=== PATIENT | male | born 1980 | race Caucasian/White ===

== ENCOUNTER 2017-04-23 22:53 | Emergency (ER) | payer SELFPAY ==
[~2017-04-23] VITALS: Ht 190.5 cm; Wt 129.3 kg
[2017-04-23 23:26] VITALS: BP 165/110
== END 2017-04-24 06:30 | disposition left against medical advice (07) ==
LOC: ER 22:53
DX: M79.602 Pain in left arm (principal); Z53.21 Procedure and treatment not carried out due to patient leaving prior to being seen by health care provider
CPT/HCPCS: 73200

== ENCOUNTER 2021-12-07 13:48 | Inpatient (IN) | payer MEDICAID, OTHER ==
[~2021-12-07] VITALS: Ht 188 cm; Wt 134.6 kg
[2021-12-07] MEDS ORDERED: cloNIDine HCL 0.1 MG TAB PO ONE (14:15)
[2021-12-07 14:45] LABS: Basophils # (auto) 0.1 10 ^3/uL (0-0.2); Basophils % (auto) 0.4 % (0.0-2.0); Eosinophils # (auto) 0.1 10 ^3/uL (0-0.8); Eosinophils % (auto) 0.8 % (0.0-7.0); Hemoglobin 15.7 g/dL (13.5-17.5); Lymphocytes # (auto) 1.9 10 ^3/uL (0.4-5.4); Lymphocytes % (auto) 14.9 % (10.0-50.0); Mean Corpuscular Hemoglobin 29.8 pg (28.0-32.0); Mean Corpuscular Hgb Conc. 34.8 g/dL (32.0-36.0); Mean Corpuscular Volume 85.4 fL (80.0-100.0); Monocytes # (auto) 0.9 10 ^3/uL (0-1.3); Monocytes % (auto) 6.9 % (0.0-12.0); Neutrophils # (auto) 9.7 10 ^3/uL (1.6-8.6); Nucleated Red Blood Cells % 0.2 %; Red Blood Cells 5.27 10^6/uL (4.5-5.90); Red Cell Distribution Width 14.6 % (11.8-14.3); White Blood Cell 12.6 10^3/uL (4.4-10.8)
[2021-12-07 15:07] LABS: Albumin 3.7 g/dL (3.4-5.0); BUN/Creatinine Ratio 10.3; Calcium 9.2 mg/dL (8.5-10.1); Potassium 3.2 mmol/L (3.5-5.1)
[2021-12-07] MEDS ORDERED: CLON0.2D6 PO (15:25)
[2021-12-07] MEDS ORDERED: LEVO-28 PO (15:25)
[2021-12-07] MEDS ORDERED: POTASSIUM EFFERVESENT TAB 25 MEQ PO ONE (15:30)
[2021-12-07] MEDS ORDERED: LABETALOL HCL 5 MG/ML 4ML SYRINGE IV ONE (15:45)
[2021-12-07] MEDS ORDERED: ASPirin 81 mg TAB PO ONE (20:30)
[2021-12-07] MEDS ORDERED: ONDANSETRON HCL 4 MG/2 ML VIAL IV PRN (21:30)
[2021-12-07] MEDS ORDERED: MORPHINE SULFATE INJ 2 MG/ml SYRG IV PRN ×2 (21:30)
[2021-12-07] MEDS ORDERED: cefTRIAXone 1GM/50ML D5W 50 ML IV ONE (21:30)
[2021-12-07] MEDS ORDERED: NITROGLYCERIN 0.4 MG SL TAB SL PRN (21:30)
[2021-12-07] MEDS ORDERED: IBUPROFEN 600 MG TAB PO PRN (21:30)
[2021-12-07] MEDS ORDERED: SODIUM CHLORIDE 0.9% 1,000 ML IV SCH (21:30)
[2021-12-07] MEDS ORDERED: DOCUSATE SOD 100 MG CAP PO PRN (21:30)
[2021-12-07] MEDS ORDERED: LORazepam 2MG/ML-1ML VIAL IV PRN (22:30)
[2021-12-07] MEDS: METOPROLOL TARTRATE 25 MG TAB PO SCH (23:09)
[2021-12-07] MEDS: HEPARIN SODIUM (PORCINE) 5000 UNITS/ML 1ML VIAL SC SCH (23:15)
[2021-12-08 02:03] LABS: Alcohol, Urine < 3.0 mg/dL (0-10); Amphetamine Screen, Urine POSITIVE (NEGATIVE); Barbiturate Scree,Urine NEGATIVE (NEGATIVE); Benzodiazephine Screen, Urine NEGATIVE (NEGATIVE); Cannabinoid Screen, Urine NEGATIVE (NEGATIVE); Cocaine Screen, Urine NEGATIVE (NEGATIVE)
[2021-12-08 02:11] LABS: Opiate Scree,Urine NEGATIVE (NEGATIVE); Phencyclidine Screen, Urine NEGATIVE (NEGATIVE)
[2021-12-08 02:35] LABS: Urine Bacteria FEW /hpf (None Seen); Urine Blood TRACE /uL (Negative); Urine WBC 6 /hpf (0 - 3)
[2021-12-08 03:00] LABS: Free T4 (Free Thyroxine) 0.97 ng/dL (0.89-1.76)
[2021-12-08 05:20] LABS: Basophils # (auto) 0 10 ^3/uL (0-0.2); Basophils % (auto) 0.4 % (0.0-2.0); Eosinophils # (auto) 0.2 10 ^3/uL (0-0.8); Hematocrit 43.2 % (41.0-53.0); Hemoglobin 15.4 g/dL (13.5-17.5); Lymphocytes % (auto) 17.2 % (10.0-50.0); Mean Corpuscular Hemoglobin 30.6 pg (28.0-32.0); Mean Corpuscular Hgb Conc. 35.7 g/dL (32.0-36.0); Mean Corpuscular Volume 85.7 fL (80.0-100.0); Monocytes % (auto) 8.6 % (0.0-12.0); Neutrophils # (auto) 8.5 10 ^3/uL (1.6-8.6); Neutrophils % (auto) 71.8 % (37.0-80.0); Nucleated Red Blood Cells % 0.1 %; Red Blood Cells 5.03 10^6/uL (4.5-5.90); Red Cell Distribution Width 14.8 % (11.8-14.3); White Blood Cell 11.9 10^3/uL (4.4-10.8)
[2021-12-08 05:32] LABS: Albumin 3.4 g/dL (3.4-5.0); Calcium 8.9 mg/dL (8.5-10.1); Potassium 3.3 mmol/L (3.5-5.1)
[2021-12-08 05:37] LABS: BUN/Creatinine Ratio 14.1; Bilirubin, Total 0.8 mg/dL (0.2-1.0); Total Protein 6.7 g/dL (6.4-8.2)
[2021-12-08] MEDS: hydrALAZINE HCL 20 MG/ML VL IV PRN ×2 (07:48→14:11)
[2021-12-08] MEDS ORDERED: cefTRIAXone 1GM/50ML D5W 50 ML IV SCH (09:00)
[2021-12-08] MEDS: amLODIPine BESYLATE 5 MG TAB PO SCH (11:32)
[2021-12-08] MEDS: HEPARIN SODIUM (PORCINE) 5000 UNITS/ML 1ML VIAL SC SCH ×2 (11:33→22:48)
[2021-12-08] MEDS: METOPROLOL TARTRATE 25 MG TAB PO SCH ×2 (11:35→22:46)
[2021-12-08] MEDS: ASPirin 81 mg TAB PO SCH (11:35)
[2021-12-08 13:24] VITALS: BP 168/116
[2021-12-08 13:30] VITALS: BP 163/116
[2021-12-08] MEDS ORDERED: POTASSIUM EFFERVESENT TAB 25 MEQ PO ONE (13:30)
[2021-12-08 16:44] VITALS: BP 167/97
[2021-12-08 22:00] VITALS: BP 169/103
[2021-12-08] MEDS ORDERED: ATORVASTATIN 20 MG TAB PO SCH (22:00)
[2021-12-08] MEDS: ATORVASTATIN 20 MG TAB PO SCH (22:45)
[2021-12-09 05:00] VITALS: BP 163/88
[2021-12-09] MEDS: hydrALAZINE HCL 20 MG/ML VL IV PRN (05:11)
[2021-12-09 05:26] LABS: Basophils # (auto) 0.1 10 ^3/uL (0-0.2); Basophils % (auto) 0.8 % (0.0-2.0); Eosinophils # (auto) 0.2 10 ^3/uL (0-0.8); Eosinophils % (auto) 2.1 % (0.0-7.0); Hematocrit 41.7 % (41.0-53.0); Hemoglobin 14.6 g/dL (13.5-17.5); Lymphocytes # (auto) 2.7 10 ^3/uL (0.4-5.4); Lymphocytes % (auto) 26.8 % (10.0-50.0); Mean Corpuscular Hemoglobin 30.5 pg (28.0-32.0); Mean Corpuscular Volume 87.2 fL (80.0-100.0); Neutrophils # (auto) 6.2 10 ^3/uL (1.6-8.6); Neutrophils % (auto) 60.3 % (37.0-80.0); Nucleated Red Blood Cells % 0.1 %; Red Blood Cells 4.79 10^6/uL (4.5-5.90); Red Cell Distribution Width 14.8 % (11.8-14.3); White Blood Cell 10.2 10^3/uL (4.4-10.8)
[2021-12-09 05:53] LABS: Potassium 3.1 mmol/L (3.5-5.1)
[2021-12-09 06:05] LABS: Albumin 3.1 g/dL (3.4-5.0); BUN/Creatinine Ratio 14.8; Bilirubin, Total 0.6 mg/dL (0.2-1.0); Calcium 8.5 mg/dL (8.5-10.1); Total Protein 6.1 g/dL (6.4-8.2)
[2021-12-09] MEDS ORDERED: POTASSIUM EFFERVESENT TAB 25 MEQ PO ONE (08:45)
[2021-12-09] MEDS: ASPirin 81 mg TAB PO SCH (08:56)
[2021-12-09] MEDS: amLODIPine BESYLATE 5 MG TAB PO SCH (08:57)
[2021-12-09] MEDS: METOPROLOL TARTRATE 25 MG TAB PO SCH ×2 (08:58→10:05)
[2021-12-09 09:00] VITALS: BP 167/122
[2021-12-09] MEDS: HEPARIN SODIUM (PORCINE) 5000 UNITS/ML 1ML VIAL SC SCH ×2 (10:05→22:03)
[2021-12-09 12:46] VITALS: BP 135/78
[2021-12-09 13:00] VITALS: BP 157/119
[2021-12-09 17:00] VITALS: BP 153/107
[2021-12-09 22:00] VITALS: BP 167/107
[2021-12-09] MEDS: ATORVASTATIN 20 MG TAB PO SCH (22:02)
[2021-12-09] MEDS: BENAZEPRIL HCL 10 MG TAB PO SCH (22:02)
[2021-12-10 05:00] VITALS: BP 157/103
[2021-12-10 08:37] VITALS: BP 160/100
[2021-12-10] MEDS: ASPirin 81 mg TAB PO SCH (09:45)
[2021-12-10] MEDS: amLODIPine BESYLATE 5 MG TAB PO SCH (09:46)
[2021-12-10] MEDS: BENAZEPRIL HCL 10 MG TAB PO SCH ×2 (09:47→21:58)
[2021-12-10] MEDS: HEPARIN SODIUM (PORCINE) 5000 UNITS/ML 1ML VIAL SC SCH (09:50)
[2021-12-10] MEDS ORDERED: traMADol HCL 50 MG TAB PO PRN (11:30)
[2021-12-10] MEDS ORDERED: BENAZEPRIL HCL 10 MG TAB PO ONE (11:30)
[2021-12-10 13:00] VITALS: BP 160/113
[2021-12-10 13:59] LABS: Folate (Folic Acid) 3.37 ng/mL (5.38-24)
[2021-12-10] MEDS: cloNIDine HCL 0.1 MG TAB PO PRN (16:14)
[2021-12-10 16:54] VITALS: BP 154/100
[2021-12-10] MEDS: ATORVASTATIN 20 MG TAB PO SCH (21:57)
[2021-12-10] MEDS: ACETAMINOPHEN 325 MG TAB PO PRN (21:57)
[2021-12-10 22:00] VITALS: BP 146/102
[2021-12-11 05:00] VITALS: BP 168/94
[2021-12-11] MEDS: ACETAMINOPHEN 325 MG TAB PO PRN (05:32)
[2021-12-11] MEDS: cloNIDine HCL 0.1 MG TAB PO PRN (05:33)
[2021-12-11 06:06] LABS: RPR Non Reactive (Non Reactive)
[2021-12-11 07:12] LABS: BUN/Creatinine Ratio 12.7; Calcium 8.9 mg/dL (8.5-10.1); Potassium 3.6 mmol/L (3.5-5.1)
[2021-12-11 08:00] VITALS: BP 143/77
[2021-12-11 08:30] VITALS: BP 143/77
[2021-12-11] MEDS ORDERED: CYANOCOBALAMIN (B-12) 1000 MCG/1 ML VIAL IM ONE (09:45)
[2021-12-11] MEDS ORDERED: FOLIC ACID 1 MG in D5W 5% 50 ML INJ SCH (10:00)
[2021-12-11] MEDS ORDERED: CYANOCOBALAMIN 500 MCG TAB PO SCH (10:00)
[2021-12-11] MEDS: ASPirin 81 mg TAB PO SCH (10:13)
[2021-12-11] MEDS: amLODIPine BESYLATE 5 MG TAB PO SCH (10:14)
[2021-12-11] MEDS: BENAZEPRIL HCL 10 MG TAB PO SCH (10:14)
[2021-12-12] MEDS ORDERED: FOLIC ACID 1 MG TAB PO SCH (10:00)
== END 2021-12-11 12:14 | disposition left against medical advice (07) | DRG 199 ==
LOC: ER 13:50 → TELE 21:38 → TELE-WESTW 12-08 12:39
PROVIDERS: ADMIT Nurse Practitioner Family; ATTEND Internal Medicine
PROC: 4A00X4Z Measurement of Central Nervous Electrical Activity, External Approach (ICD-10-PCS; principal; 2021-12-09)
DX: I16.1 Hypertensive emergency (principal); G93.41 Metabolic encephalopathy; I67.83 Posterior reversible encephalopathy syndrome; I21.A1 Myocardial infarction type 2; N17.9 Acute kidney failure, unspecified; J40 Bronchitis, not specified as acute or chronic; D72.829 Elevated white blood cell count, unspecified; E66.9 Obesity, unspecified; E78.5 Hyperlipidemia, unspecified; E87.6 Hypokalemia; F15.10 Other stimulant abuse, uncomplicated; I12.9 Hypertensive chronic kidney disease with stage 1 through stage 4 chronic kidney disease, or unspecified chronic kidney disease; N18.30 Chronic kidney disease, stage 3 unspecified; Z20.822 Contact with and (suspected) exposure to COVID-19; E53.8 Deficiency of other specified B group vitamins; Z53.29 Procedure and treatment not carried out because of patient's decision for other reasons; G40.909 Epilepsy, unspecified, not intractable, without status epilepticus; Z79.899 Other long term (current) drug therapy; Z68.38 Body mass index [BMI] 38.0-38.9, adult; Z91.199 Patient's noncompliance with other medical treatment and regimen due to unspecified reason
CPT/HCPCS: 36415; 70450; 70551; 80048; 80053; 80061; 80307; 81001; 82306; 82378; 82607; 82746; 83036; 83516; 83520; 84439; 84443; 84484; 85025; 85652; 86038; 86141; 86160; 86225; 86235; 86256; 86300; 86304; 86431; 86592; 86703; 87040; 87086; 87426; 93005; 95819; 96365; 96366; 96375; G0378; J0696; J3490; J7060